=== PATIENT | female | born 1945 | race Caucasian/White ===

== ENCOUNTER 2020-01-29 09:37 | Inpatient (IN) | payer MEDICARE, OTHER, SELFPAY ==
[2020-01-29] VITALS (12 sets, daily range): BP systolic 134–170; BP diastolic 51–142; PULSE 70–107; RESP 15–20; TEMP 36.2–37.1; O2SAT 95–99; BMI 32.9; BMI 31.6
--- NOTE | 2020-01-29 10:03 | HMH.EDUTC ---
[facility] [place] Clinical Impression: Jaundice Disposition: Still a Patient Condition on Discharge: Good Referrals: Sarwat Galarza [Primary Care Provider] - Time of Disposition: 10:15 Medical Decision Making - Kaden Inquiry Pt receiving controlled substance: No Kaden was queried for this patient: No Vital Signs: 01/29/20 09:55 Pulse Rate [Radial] 107 H Respiratory Rate 18 Blood Pressure [Right Arm] 170/142 H Blood Pressure Mean [Right Arm] 151 Blood Pressure Source [Right Arm] Automatic Cuff Blood Pressure Position [Right Arm] Sitting 02 Sat by Pulse Oximetry 95 Oxygen Delivery Method Room Air Orders (Tests/Meds): ORDERS Category Date Time Status Covid-19 Nasal PCR ([facility]) Routine Lab 01/29/20 09:40 Ordered Medical Decision Narrative: Patient reports over all not feeling well and feeling worse than when she saw her PCP earlier in the week, states that she has a scope scheduled and needed a COVID test. Patient states that she is feeling weak, shaky , having pain on and off in upper abdomen and states just dont feel good at all, dont feel right and cant put her finger on whats wrong Patient appears jaundice with yellow tone noted to skin and eyes and recommended transfer to the ED for further work up and evaluation and patient agreed to transfer patient states scared because it was getting worse Called ED and spoke with Lisa RN and informed her of patient and appearance and patient transferred to ED for further treatment [facility] - General Stated complaint: covid test for surgery Time Seen by Provider: 01/29/20 10:03 Mode of Arrival: Ambulatory Source of Information: Patient Limitations: No Limitations Description of Symptoms (Recalled from Triage Doc. by RN): stung by a wasp 4 weeks ago and was put on Augmentin. Patient began to have reactions and was turning yellow. Told by doctor that she is allergic to Augmentin. Here today for a COVID swab for a scope on Thursday. Patient is extremely jaundice, shaky and not feeling well. HEENT Symptoms (Recalled from RN notes): No Resp Symptoms (Recalled from RN notes): No Skin Symptoms (Recalled from RN notes): Yes MS Symptoms (Recalled from RN notes): Yes Functional Status (Recalled from RN notes): wnl - History of Present Illness Provider Complaint: Patient states that several weeks ago she was stung by wasp and went to the ER states that she was started on Augmentin and she was taking it and started having issues and noticed that she was starting to have yellowish color to her skin and eyes States that she seen her PCP and they stopped it and placed her on another medication States that she has continued to get worse and her skin and eyes are continuing to look more yellow and her skin itches. States that at times she has discomfort in her upper abdomen but has history of Ulcers and IBS and thought that may just be from that States that she had lab work done on but they didnt give her the results and she has continued to get more yellow in her skin and eyes, feels shaky and over all dont feel well States that she came in today to get her COVID test done for surgery but just dont feel well and not feeling right - Related Data Allergies Allergy/AdvReac Type Severity Reaction Status Date / Time amoxicillin [From Augmentin] Allergy Verified 01/29/20 10:00 clavulanic acid Allergy Verified 01/29/20 10:00 [From Augmentin] - Worker's Comp Is this a Worker's Comp case?: No [facility] History - Hepatitis A Screen Drug use history?: No High risk sexual behaviors?: No History of sexually transmitted infection?: No Currently employed?: No Childcare worker?: No Do you have indoor plumbing?: Yes Do you have electricity?: Yes Attestation statement:: This patient has been screened for Hepatitis A risk factors. I have reviewed the patient's past medical history: Yes - Social History Alcohol Intake: never Occupational Status: other
--- NOTE | 2020-01-29 10:25 | HMH.EDGENADL ---
ED Disposition Clinical Impression: Jaundice, Obstructive jaundice Disposition: Admitted As Inpatient Condition on Discharge: Fair Additional Instructions: Patient will be admitted for ERCP given her obstructive jaundice. Case discussed with Dr. Figueroa who agreed with consultation and for the patient to be admitted to the hospitalist service. Patient is hemodynamically stable and is relatively pain-free at this time. Referrals: Sarwat Galarza [Primary Care Provider] - - Critical Care Critical Care Time: No Attestation: On 01/29/20, the high probability of a clinically significant, sudden or life threatening deterioration of the following system(s) required my full and direct attention, intervention and personal management. The time I documented below is in addition to time spent performing reported procedures but includes the following listed in this critical care notation. Medical Decision Making - Medical Records Medical records reviewed: Yes: I reviewed the patient's medical records. - Kaden Inquiry Pt receiving controlled substance: No Vital Signs: 01/29/20 09:55 01/29/20 10:16 01/29/20 10:30 Temperature 97.2 F L Temperature Source Temporal Artery Scan Pulse Rate [Radial] 107 H 100 H 88 Respiratory Rate 18 18 Blood Pressure [Right Arm] 170/142 H 170/77 H 168/56 H Blood Pressure Mean [Right Arm] 151 108 93 Blood Pressure Source [Right Arm] Automatic Cuff Automatic Cuff Automatic Cuff Blood Pressure Position [Right Arm] Sitting Sitting Sitting 02 Sat by Pulse Oximetry 95 95 95 Oxygen Delivery Method Room Air Room Air Room Air 01/29/20 10:57 01/29/20 12:55 Temperature Temperature Source Pulse Rate [Radial] 77 82 Respiratory Rate Blood Pressure [Right Arm] 147/64 H 140/55 L Blood Pressure Mean [Right Arm] 91 83 Blood Pressure Source [Right Arm] Automatic Cuff Automatic Cuff Blood Pressure Position [Right Arm] Sitting Sitting 02 Sat by Pulse Oximetry 96 97 Oxygen Delivery Method Room Air Room Air - Lab Data Lab Results 01/29/20 10:27: WBC 5.7, RBC 4.46, Hgb 14.6, Hct 42.5, MCV 95.4, MCH 32.8 H, MCHC 34.4, RDW 16.2, Plt Count 213, MPV 10.3, Neut % (Auto) 53.0, Lymph % (Auto) 31.7, [place] % (Auto) 7.4, Eos % (Auto) 6.2, Baso % (Auto) 1.7, Neut # (Auto) 3.0, Lymph # (Auto) 1.8, [place] # (Auto) 0.4, Eos # (Auto) 0.4, Baso # (Auto) 0.1 01/29/20 10:27: Sodium 138, Potassium 3.5, Chloride 102, Carbon Dioxide 24, Anion Gap 15.5 H, BUN 14, Creatinine 1.10 H, Estimated Creat Clear 61, Estimated GFR 49 L, Est GFR ( Amer) 59, Glucose 155 H, Calcium 9.8, Total Bilirubin 18.7 H*, AST 464 H*, ALT 461 H*, Alkaline Phosphatase 323 H, C-Reactive Protein 5.8 H, Total Protein 7.3, Albumin 4.0, Globulin 3.3 H, Albumin/Globulin Ratio 1.2 01/29/20 10:27: ESR 23 01/29/20 10:27: Lactate 1.4 01/29/20 10:27: NT-Pro-B Natriuret Pep 97.8, Lipase 148 01/29/20 10:27: Ammonia 13 01/29/20 10:27: Monoscreen Negative 01/29/20 10:27: SARS-CoV-2 IgG Ab (Rapid) Negative, SARS-CoV-2 IgM Ab (Rapid) Negative 01/29/20 10:36: Urine Color Lu, Urine Appearance Sl cloudy, Urine pH 6.0, Ur Specific [place] 1.015, Urine Protein 1+, Urine Glucose (UA) Negative, Urine Ketones Negative, Urine Blood Trace-l, Urine Nitrate Negative, Urine Bilirubin 3+ A, Urine Urobilinogen 1.0, Ur Leukocyte Esterase 1+ A, Urine RBC Occasional, Urine WBC 3-5, Ur Squamous Epith Cells 3-5, Amorphous Sediment 2+, Urine Bacteria None 01/29/20 10:36: VBG pH 7.44 H, VBG pCO2 33.8 L, VBG pO2 137.2 H, VBG HCO3 22.2 L, VBG Total CO2 23.3, VBG O2 Saturation 99.2 H, VBG Base Excess -2.0 Result diagrams: 01/29/20 10:27 01/29/20 10:27 Orders (Tests/Meds): ED MEDICATIONS Discontinued Medications Generic Name Dose Route Start Last Admin Trade Name Freq PRN Reason Stop Dose Admin Sodium Chloride 1,000 mls @ 999 mls/hr 01/29/20 11:00 01/29/20 11:01 Sod Chlor 0.9% 1000ml Bag IV 01/29/20 12:00 999 mls/hr .Q1H1M TRACI Administration Ioversol 75 ml
[2020-01-29 10:40] LABS: Microscopic, Urine URINE MICROSCOPIC (MICROSCOPIC)
[2020-01-29 10:42] LABS: Basophils # 0.1 K/mm3 (0-0.2); Basophils % 1.7 % (0.1-2.0); Eosinophils # 0.4 K/mm3 (0.0-0.4); Eosinophils % 6.2 % (0.1-12.0); Hematocrit 42.5 % (37.0-47.0); Hemoglobin 14.6 g/dL (12.2-16.2); Lymphocytes # 1.8 K/mm3 (0.7-4.5); Lymphocytes % 31.7 % (10-50); Mean Corpuscular HGB Conc 34.4 g/dL (31.8-35.4); Mean Corpuscular Hemoglobin 32.8 pg (27.0-31.2); Mean Corpuscular Volume 95.4 fl (81-99); Mean Platelet Volume 10.3 fl (7.4-10.4); Monocytes # 0.4 K/mm3 (0.1-1.0); Monocytes % 7.4 % (1.7-9.3); Platelet Count 213 K/mm3 (142-424); Red Blood Count 4.46 M/mm3 (4.20-5.40); Red Cell Distribution Width 16.2 % (11.5-17.5); White Blood Count 5.7 K/mm3 (4.8-10.8)
[2020-01-29 10:43] LABS: Appearance,Urine SL CLOUDY (Clear); Blood, Urine TRACE-L (Negative); Color,Urine AMBER (Yellow); Glucose,Urine (UA) Negative (Negative); Ketones,Urine Negative (Negative); Leukocyte Esterase,Urine 1+ (Negative); Nitrate,Urine Negative (Negative); Protein,Urine 1+ (Negative); Specific Gravity, Urine 1.015 (1.005-1.030)
[2020-01-29 10:48] LABS: Bilirubin,Urine 3+ (Negative)
[2020-01-29 10:49] LABS: Chloride 102 mmol/L (98-107); Potassium 3.5 mmoL/L (3.5-5.1); Sodium 138 mmol/L (136-145)
[2020-01-29 10:51] LABS: Alanine Aminotransferase 461 U/L (12-78); Aspartate Amino Transferase 464 U/L (14-36); Blood Urea Nitrogen 14 mg/dl (7-17); Creatinine Clearance Estimated 61 mL/min (50-200); Estimated Glomerular Filt Rate 49 ml/min (>60); GFR (African American) 59 ML/MIN (>60)
[2020-01-29 10:52] LABS: Albumin/Globulin Ratio 1.2 (1.1-1.8); Alkaline Phosphatase 323 U/L (38-126); Anion Gap 15.5 mEq/L (5-15); Calcium 9.8 mg/dl (8.4-10.2); Carbon Dioxide 24 mmol/L (22.0-30.0); Globulin 3.3 g/dL (1.3-3.2); Glucose 155 mg/dl (74-100); Total Protein,Serum 7.3 g/dl (6.3-8.2)
[2020-01-29 10:53] LABS: Ammonia 13 umol/L (9-30); Lactic Acid 1.4 mmol/L (0.7-2.1)
[2020-01-29 10:54] LABS: Bilirubin,Total 18.7 mg/dl (0.2-1.3); Lipase 148 U/L (23-300)
[2020-01-29 10:55] LABS: Amorphous Sediment,Urine 2+ /lpf; RBC,Urine Occasional #/hpf (0-3)
--- NOTE | 2020-01-29 10:55 | CT_ITS ---
PROCEDURE: CT ABDOMEN PELVIS W CON CLINICAL INDICATION: epigastric abd pain; jaundice; elevated bilirubin COMPARISON: No exams were available for comparison TECHNIQUE: IV Contrast: 75ML OPTIRAY 350 Oral Contrast none given Axial images obtained with sagittal and coronal reformats. All CT scans at the facility use one or more dose reduction, viz: automated exposure control, ma/kV adjustment per patient size (including targeted exams where dose is matched to indication, i.e. head), or iterative reconstruction technique. FINDINGS: Lower thorax: The lower lung mcintosh are clear and there is no pleural fluid. Cardiac size is normal. There is minimal coronary artery calcification. ABDOMEN: Liver: No masses or biliary dilatation. Gallbladder: The gallbladder is mildly hydropic with a calcified stone near the neck of the gallbladder. Mildly dilated at 7 mm. There is a possible tiny nodular density distal common bile duct just at or above the Ampulla of Vater. This could represent some biliary sludge and or partially calcified gallstone. Consider follow-up MRCP and/or ERCP for additional evaluation. Pancreas: No masses or peripancreatic fluid collections. Spleen: The spleen is normal in size containing multiple small calcified granulomata. Adrenals: unremarkable Kidneys/ureters: The kidneys are normal in size and show symmetrical function both appearing normal. ABDOMEN & PELVIS: Stomach bowel: Nondistended. No obvious mass or thickening. The duodenal sweep and small bowel appear normal. There is mild to moderate scattered stool and gas seen throughout the colon. There is minimal diffuse diverticulosis of the sigmoid colon but there is no diverticulitis. Peritoneum: No abnormal fluid collections. No obvious inflammatory changes. No free air. Lymph nodes: No enlarged lymph nodes apparent. Vasculature: No evidence of abdom there is mild degenerate disc disease L5-S1. Inal aortic aneurysm. No retroperitoneal hemorrhage evident. Bones: No acute fracture PELVIS: Reproductive: The uterus is normal size and midline. Bladder: Urinary bladder is moderately distended with urine and appears normal. There is no free fluid in the pelvis. Appendix: Not definitely identified but there are no findings to suggest appendicitis. IMPRESSION: Grossly normal appearing liver, cholelithiasis with tiny partially calcified stone versus biliary sludge distal common bile duct and depending on the patient's subsequent clinical symptoms consider follow-up ERCP or ERCP for additional evaluation. Dictated by: Dr. Mejia Callahan MD 01/29/2020 12:46 Dr. Mejia Callhaan MD in [place] 01/29/2020 12:46
[2020-01-29 10:57] LABS: C-Reactive Protein 5.8 mg/L (0-4)
--- NOTE | 2020-01-29 10:58 | PC.NURSE ---
Lab at bedside
--- NOTE | 2020-01-29 10:59 | PC.NURSE ---
Calling [facility] for pt records.
[2020-01-29 11:04] LABS: NT Pro Brain Natriuretic Pep. 97.8 pg/mL (0-125)
--- NOTE | 2020-01-29 11:07 | PC.NURSE ---
Labs received from [place] at this time.
[2020-01-29 11:09] LABS: Erythrocyte Sedimentation Rate 23 mm/hr (0-30)
[2020-01-29 11:15] LABS: Monoscreen (Rapid) Negative (Negative)
[2020-01-29 11:18] LABS: VBG HCO3 22.2 mmol/L (23-30); VBG Oxygen Saturation 99.2 % (50-70); VBG PCO2 33.8 mmol/L (35-51); VBG PH 7.44 mmol/L (7.31-7.41); VBG PO2 137.2 mmol/L (28-40); VBG Total CO2 23.3 mmol/L (23-27)
[2020-01-29 11:26] LABS: Coronavirus 19 IgG Antibody Negative (Negative); Coronavirus 19 IgM Antibody Negative (Negative)
--- NOTE | 2020-01-29 12:04 | PC.NURSE ---
Pt to rad.
--- NOTE | 2020-01-29 13:21 | PC.NURSE ---
speaking to dr Figueroa
--- NOTE | 2020-01-29 13:26 | PC.NURSE ---
speaking to Dr Caldwell referring admission
--- NOTE | 2020-01-29 13:29 | PC.NURSE ---
Notified house of admission
--- NOTE | 2020-01-29 15:46 | PC.NURSE ---
Pt arrived to the floor at 1530 via wc with staff
--- NOTE | 2020-01-29 21:30 | HMH.HP ---
*Admission Date: 01/29/20 *Chief complaint: Not feeling well. *History of present illness: This 74-year-old white female presented this evening to the urgent treatment center initially. She complained of not feeling well for a while. She had been scheduled for a gastroenterology appointment this coming week on Thursday. She was supposed to be tested for COVID prior to that test. When she was seen in urgent treatment it was felt that she needed further evaluation due to obvious jaundice. She was then transferred to the emergency room for further evaluation. In the emergency room she was found to have elevated liver enzymes and bilirubin. CT was performed and showed obstruction of the biliary tract. The emergency room physician contacted Dr. Figueroa. The patient is admitted for further evaluation with likely ERCP in the morning. The patient reports no previous episodes of jaundice but does have a history of irritable bowel syndrome and cramping after she eats certain foods. She states that she had a gallbladder test 2 to 3 years ago. She states that she had an MRI recently for GI symptoms. In addition to the above the patient states that she was stung by a wasp 4 weeks ago and received treatment with Augmentin and subsequently with ampicillin. She has been fearful that her current symptoms are related to allergic reaction to those medications. She has not had any typical allergic reactions, however, to these medications. [facility] History Medical History: Reports:: Gastroesophageal Reflux Disease(GERD) (PUD), Hyperlipidemia, Hypertension Denies:: Cancer, Diabetes Mellitus Type 1, Diabetes Mellitus Type 2, Internal Pacemaker, MRSA *Have you ever received a pneumonia vaccine?: Yes *Have you received a flu vaccine this season?: Yes (Also has received hepatitis A immunization and shingles immunization) Other Medical History: Reports: Cataracts Laterality Cases: Right: Arthroscopy Shoulder (States that she has had multiple surgeries on the right shoulder) Other Surgeries: Yes: No Previous Surgery. No: Pacemaker Amputation: No Fractures: No - *Social History Last grade of school completed: 11th or 12th Smoking Status: Never smoker Alcohol Intake: never *Occupational Status:: retired (Worked at [employer] for 30 years) Housing: apartment Household Members: spouse *Travel in the last 8 weeks: None Family Hx:: Cancer Comment: . 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 She has a son and a daughter. She has 4 grandchildren and 2 great-grandchildren. 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[place]) - *Genitourinary Denies blood in urine (Urine has been a bit darker in color) - *Musculoskeletal Denies joint pain (Except right shoulder pain), Denies body aches - *Neurologic Reports weakness, Denies seizure-like activity, Denies fainting - Hematologic/Lymphatic Denies easy bruising - Allergic/Immunologic Reports GI upset with certain foods, Reports other (Some itching of the skin recently) Meds Home Medications Medication Instructions Recorded Confirmed Type Metoprolol Succinate [Metoprolol 25 mg PO DAILY 01/29/20 01/29/20 History Succinate 25mg Tablet*] Montelukast Sodium [Singulair 10mg 10 mg PO PM 01/29/20 01/29/20 History tablet] Omeprazole [Omeprazole 40mg 40 mg PO DAILY 01/29/20 01/29/20 History Capsule] Pravastatin Sodium [Pravachol 20mg 20 mg PO HS 01/29/20 01/29/20 History Tablet] Allergies Allergy/AdvReac Type Severity Reaction Status Date / Time amoxicillin [From Augmentin] Allergy Verified 01/29/20 10:00 clavulanic acid Allergy Verified 01/29/20 10:00 [From Augmentin] Exam Vital signs and Lab
[2020-01-30] VITALS (15 sets, daily range): BP systolic 114–167; BP diastolic 40–82; PULSE 61–86; RESP 16–20; TEMP 36.1–37.1; O2SAT 95–100; BMI 31.4
--- NOTE | 2020-01-30 03:48 | PC.NURSE ---
Pt has rested well this shift. Pt is A&Ox4. Lung sounds clear t/o. Active bowel sounds in all 4 quads. Abdomen is soft and non-tender. Pt's skin and sclera continue to be jaundiced but have showed no increase in yellowing. Pt was educated on NPO after midnight status and has verbalized understanding. PIV remains patent and is infusing 0.45% NS @ 75 ml/hr. NO other acute changes or complaints at this time. Will continue to monitor.
[2020-01-30 05:43] LABS: Basophils # 0.1 K/mm3 (0-0.2); Basophils % 1.6 % (0.1-2.0); Eosinophils # 0.5 K/mm3 (0.0-0.4); Hematocrit 38.9 % (37.0-47.0); Hemoglobin 13.2 g/dL (12.2-16.2); Lymphocytes # 1.8 K/mm3 (0.7-4.5); Lymphocytes % 32.3 % (10-50); Mean Corpuscular HGB Conc 33.9 g/dL (31.8-35.4); Mean Corpuscular Hemoglobin 33.8 pg (27.0-31.2); Mean Corpuscular Volume 99.9 fl (81-99); Mean Platelet Volume 9.6 fl (7.4-10.4); Monocytes # 0.5 K/mm3 (0.1-1.0); Monocytes % 8.5 % (1.7-9.3); Neutrophils # 2.6 K/mm3 (1.8-7.8); Neutrophils % 47.4 % (37.0-80.0); Platelet Count 181 K/mm3 (142-424); Red Cell Distribution Width 16.2 % (11.5-17.5); White Blood Count 5.4 K/mm3 (4.8-10.8)
[2020-01-30 06:06] LABS: Albumin Level 3.6 g/dl (3.5-5.0); Albumin/Globulin Ratio 1.2 (1.1-1.8); Alkaline Phosphatase 332 U/L (38-126); Anion Gap 12.4 mEq/L (5-15); Blood Urea Nitrogen 13 mg/dl (7-17); Calcium 9.4 mg/dl (8.4-10.2); Carbon Dioxide 25 mmol/L (22.0-30.0); Chloride 105 mmol/L (98-107); Creatinine Clearance Estimated 58 mL/min (50-200); Estimated Glomerular Filt Rate 49 ml/min (>60); GFR (African American) 59 ML/MIN (>60); Globulin 3.1 g/dL (1.3-3.2); Potassium 4.4 mmoL/L (3.5-5.1); Sodium 138 mmol/L (136-145); Total Protein,Serum 6.7 g/dl (6.3-8.2)
[2020-01-30 06:08] LABS: Alanine Aminotransferase 400 U/L (12-78); Aspartate Amino Transferase 400 U/L (14-36); Glucose 118 mg/dl (74-100)
--- NOTE | 2020-01-30 06:30 | PC.NURSE ---
MD Caldwell paged for critical labs. Bilirubin- 16.0 AST- 400 ALT- 400 No new orders.
--- NOTE | 2020-01-30 07:32 | P.CONPHA_ITS ---
[facility] Pharmacy VTE Monitoring - Patient Demographics Admission date: 01/29/20 Report Date: 01/30/20 Time: 07:33 Allergies/Adverse Reactions: Patient Allergies amoxicillin [From Augmentin] Allergy (Verified 01/29/20 10:00) clavulanic acid [From Augmentin] Allergy (Verified 01/29/20 10:00) Height: 1.6 m Weight: 80.513 kg Patient Problems: Current Active Problems Jaundice (Acute) Obstructive jaundice (Acute) - VTE Risk Labs: VTE Related Lab Results Hgb 13.2 g/dL (12.2-16.2) 01/30/20 05:26 Hct 38.9 % (37.0-47.0) 01/30/20 05:26 Plt Count 181 K/mm3 (142-424) 01/30/20 05:26 BUN 13 mg/dl (7-17) 01/30/20 05:26 Creatinine 1.10 mg/dl (0.52-1.04) H 01/30/20 05:26 Estimated Creat Clear 58 mL/min (50-200) 01/30/20 05:26 Was VTE Risk Assessment Performed: Yes VTE Score: 2 VTE Risk Level: Very Low Risk - Prophylaxis VTE Prophylaxis Ordered?: Yes Types of VTE Prophylaxis: TEDS Knee High Location of Applied Device: Bilateral Lower Extremeties
--- NOTE | 2020-01-30 07:40 | FL_ITS ---
PROCEDURE: FL ERCP CLINICAL INDICATION: elevated liver enzymes COMPARISON: CT CT ABDOMEN PELVIS W CON from 01/29/2020 FINDINGS: Fluoroscopy time: 5 minutes and 12 seconds Pancreatogram initially performed with incomplete opacification of the pancreatic duct with opacification limited to the pancreatic head raising the question of a pancreatic divisum... A stent was placed in the pancreatic duct. Single image submitted from the biliary ductal injection showing abrupt termination of the distal common bile duct with possible minimal amount of sludge or tiny stones distally. Please correlate with fluoroscopic findings. IMPRESSION: 1. Possible pancreatic divisum 2. Abrupt termination of the distal common bile duct possibly due to spasm. There may be a minimal amount of sludge or tiny stone distally. Please correlate with fluoroscopic findings as obstruction of the distal duct is not excluded based on this 1 image. Dictated by: Som Vargas MD 01/31/2020 15:09 Som Vargas MD in [place] 01/31/2020 15:09
--- NOTE | 2020-01-30 07:49 | HMH.PHAINT ---
MEDICATION RECONCILIATION COMPLETED ON PATIENT USING EXTERNAL FILL HISTORY FROM PHARMACY. -KRISTINA PAULINO, SANTID
--- NOTE | 2020-01-30 08:15 | HMH.ACPN2 ---
Internal Medicine - PN: Subj *Date: 01/30/20 *Time: 08:15 Interval history: Patient states she slept through the night. She denies any type of pain. She is breathing without difficulty. She is awaiting her procedure, ERCP, this morning per Dr. Figueroa and has been n.p.o. She did eat dinner without difficulty last night. She denies nausea, vomiting, diarrhea. She did have 2 normal stools this morning. She ambulates without difficulty. IV fluids remained at 75/h. Blood chemistries this morning show normal electrolytes. BUN is 13 and creatinine is 1.10. Total bilirubin remains elevated at 16. AST is 400 with an ALT of 400 and alkaline phosphatase of 332. Exam Vital signs and Labs for Last 24 Hours: Temp Pulse Resp BP Pulse Ox 98.5 F 81 20 138/56 L 97 01/30/20 04:00 01/30/20 04:00 01/30/20 04:00 01/30/20 04:00 01/30/20 04:00 Laboratory Results - last 24 hr 01/29/20 10:27: WBC 5.7, RBC 4.46, Hgb 14.6, Hct 42.5, MCV 95.4, MCH 32.8 H, MCHC 34.4, RDW 16.2, Plt Count 213, MPV 10.3, Neut % (Auto) 53.0, Lymph % (Auto) 31.7, [place] % (Auto) 7.4, Eos % (Auto) 6.2, Baso % (Auto) 1.7, Neut # (Auto) 3.0, Lymph # (Auto) 1.8, [place] # (Auto) 0.4, Eos # (Auto) 0.4, Baso # (Auto) 0.1 01/29/20 10:27: Sodium 138, Potassium 3.5, Chloride 102, Carbon Dioxide 24, Anion Gap 15.5 H, BUN 14, Creatinine 1.10 H, Estimated Creat Clear 61, Estimated GFR 49 L, Est GFR ( Amer) 59, Glucose 155 H, Calcium 9.8, Total Bilirubin 18.7 H*, AST 464 H*, ALT 461 H*, Alkaline Phosphatase 323 H, C-Reactive Protein 5.8 H, Total Protein 7.3, Albumin 4.0, Globulin 3.3 H, Albumin/Globulin Ratio 1.2 01/29/20 10:27: ESR 23 01/29/20 10:27: Lactate 1.4 01/29/20 10:27: NT-Pro-B Natriuret Pep 97.8, Lipase 148 01/29/20 10:27: Ammonia 13 01/29/20 10:27: Monoscreen Negative 01/29/20 10:27: SARS-CoV-2 IgG Ab (Rapid) Negative, SARS-CoV-2 IgM Ab (Rapid) Negative 01/29/20 10:36: Urine Color Lu, Urine Appearance Sl cloudy, Urine pH 6.0, Ur Specific [place] 1.015, Urine Protein 1+, Urine Glucose (UA) Negative, Urine Ketones Negative, Urine Blood Trace-l, Urine Nitrate Negative, Urine Bilirubin 3+ A, Urine Urobilinogen 1.0, Ur Leukocyte Esterase 1+ A, Urine RBC Occasional, Urine WBC 3-5, Ur Squamous Epith Cells 3-5, Amorphous Sediment 2+, Urine Bacteria None 01/29/20 10:36: VBG pH 7.44 H, VBG pCO2 33.8 L, VBG pO2 137.2 H, VBG HCO3 22.2 L, VBG Total CO2 23.3, VBG O2 Saturation 99.2 H, VBG Base Excess -2.0 01/30/20 05:26: WBC 5.4, RBC 3.90 L, Hgb 13.2, Hct 38.9, MCV 99.9 H, MCH 33.8 H, MCHC 33.9, RDW 16.2, Plt Count 181, MPV 9.6, Neut % (Auto) 47.4, Lymph % (Auto) 32.3, [place] % (Auto) 8.5, Eos % (Auto) 10.0, Baso % (Auto) 1.6, Neut # (Auto) 2.6, Lymph # (Auto) 1.8, [place] # (Auto) 0.5, Eos # (Auto) 0.5 H, Baso # (Auto) 0.1 01/30/20 05:26: Sodium 138, Potassium 4.4 D, Chloride 105, Carbon Dioxide 25, Anion Gap 12.4, BUN 13, Creatinine 1.10 H, Estimated Creat Clear 58, Estimated GFR 49 L, Est GFR ( Amer) 59, Glucose 118 H D, Calcium 9.4, Total Bilirubin 16.0 H*, AST 400 H*, ALT 400 H*, Alkaline Phosphatase 332 H, Total Protein 6.7, Albumin 3.6, Globulin 3.1, Albumin/Globulin Ratio 1.2 I & O for Last 24 hours: Intake & Output 01/27/20 01/28/20 01/29/20 01/30/20 11:59 11:59 11:59 11:59 Intake Total 686 / 686 Balance 686 / 686 Weight 186 lb 177 lb 8 oz Microbiology Reports for the Last 24 Hours: Microbiology 01/29/20 09:15 Nasopharyngeal Coronavirus COVID-19 PCR - Final - Constitutional no acute distress - *Routine Respiratory Exam Present: CTA bilaterally (Anteriorly and posteriorly) - *Routine Cardiovascular Exam Present: RRR - *Routine Abdominal Exam Present: soft, normoactive bowel sounds. Absent: tenderness, distended - *Routine Extremities Exam Absent: edema, calf tenderness - *Routine Skin Exam Present: jaundice - *Routine Neurological Exam Present: alert, oriented X3 Assessment and Plan (1) Jaundice Status: Acute Shyla
--- NOTE | 2020-01-30 09:09 | PC.NURSE ---
SPOKE TO KIAN (PRE OP) ABOUT CONSULT.
--- NOTE | 2020-01-30 15:05 | P.PN_ITS ---
[facility] Anesthesia Checklist - Structural Data Admitted From: Inpatient Planned Operative Procedure/s: ercp Consent for Planned Operative Procedure(s) Verified: Yes - Airway Assessment C-Spine Mobility Assessed: Yes TMJ Mobility Assessed: Yes Dentition: Dentures-good fit - Neurological Assessment Level of Consciousness: Awake, Alert, Appropriate - Anesthesia Plan Anesthesia Risk discussed: Yes Anesthesia Plan: Verified ASA Class: II Anesthesia Type: MAC [facility] History I have reviewed the patient's past medical history: Yes Medical History: Reports:: Gastroesophageal Reflux Disease(GERD) (PUD), Hyperlipidemia, Hypertension Denies:: Cancer, Diabetes Mellitus Type 1, Diabetes Mellitus Type 2, Internal Pacemaker, MRSA *Have you ever received a pneumonia vaccine?: Yes *Have you received a flu vaccine this season?: Yes (Also has received hepatitis A immunization and shingles immunization) Other Medical History: Reports: Cataracts Anesthesia experience/problems:: none Laterality Cases: Right: Arthroscopy Shoulder (States that she has had multiple surgeries on the right shoulder) Other Surgeries: Yes: No Previous Surgery. No: Pacemaker Amputation: No Fractures: No - *Social History Last grade of school completed: 11th or 12th Smoking Status: Never smoker Alcohol Intake: never Substance Use Type: denies use *Occupational Status:: retired (Worked at [employer] for 30 years) Housing: apartment Household Members: spouse *Travel in the last 8 weeks: None Family Hx:: Cancer
--- NOTE | 2020-01-30 18:18 | PC.NURSE ---
A&OX4. PT HAS TOLERATED ROOM AIR WELL THROUGHOUT SHIFT. RESPIRATIONS REGULAR AND UNLABORED. LUNG SOUNDS BILATERALLY CLEAR. NO COUGH NOTED. HAND TITLE CURATIVE SPECIALIST EQUAL. +2 PULSES NOTED THROUGHOUT. ACTIVE BOWEL SOUNDS HEARD IN ALL 4 QUADRANTS. SOFT AND NONTENDER ABDOMEN. NO BM REPORTED. PT VOIDS PER RESTROOM INDEPENDENTLY. NO NAUSEA OR PAIN REPORTED. JAUNDICE IS NOTED IN BILATERAL EYES AND SKIN. PT RECEIVED ERCP TODAY AND TOLERATED WELL. DR CASAREZ ORDERED ICE CHIPS AND WATER TO BE GIVEN ONLY. PT IS TOLERATING WELL. PT IS CURRENTLY ON POST OP VITALS. VSS. PT IS CURRENTLY IN BED RESTING. AT BEDSIDE. CALL LIGHT WITHIN REACH. BED IN LOWEST POSITION. WILL CONTINUE TO MONITOR.
[2020-01-31] VITALS: BP 118/48; PULSE 72; RESP 18; TEMP 36.6; O2SAT 99
--- NOTE | 2020-01-31 03:26 | PC.NURSE ---
pt A&OX4 lungs CTA pt denies SOA. pt c/o of back pain medicated per JUN. pt has slept at intervals this shift
[2020-01-31 04:00] VITALS: BP 128/59; PULSE 80; RESP 16; TEMP 37.1; O2SAT 97
[2020-01-31 05:28] VITALS: BMI 31.9
[2020-01-31 06:03] LABS: Hep A Ab, IgM Negative (Negative); Hepatitis B Core Antibody IgM Negative (Negative); Hepatitis B Surface Antigen Negative (Negative)
[2020-01-31 06:08] LABS: Eosinophils # 0.4 K/mm3 (0.0-0.4)
[2020-01-31 06:09] LABS: Chloride 104 mmol/L (98-107); Potassium 4.1 mmoL/L (3.5-5.1); Sodium 135 mmol/L (136-145)
[2020-01-31 06:12] LABS: Alanine Aminotransferase 301 U/L (12-78); Albumin/Globulin Ratio 1.2 (1.1-1.8); Alkaline Phosphatase 246 U/L (38-126); Anion Gap 12.1 mEq/L (5-15); Aspartate Amino Transferase 281 U/L (14-36); Bilirubin,Total 16.6 mg/dl (0.2-1.3); Blood Urea Nitrogen 18 mg/dl (7-17); Carbon Dioxide 23 mmol/L (22.0-30.0); Creatinine Clearance Estimated 59 mL/min (50-200); Estimated Glomerular Filt Rate 49 ml/min (>60); GFR (African American) 59 ML/MIN (>60); Globulin 2.6 g/dL (1.3-3.2); Glucose 89 mg/dl (74-100); Total Protein,Serum 5.6 g/dl (6.3-8.2)
[2020-01-31 07:35] VITALS: O2SAT 98
[2020-01-31 07:53] VITALS: BP 130/65; PULSE 72; RESP 19; TEMP 36.7; O2SAT 99
--- NOTE | 2020-01-31 08:31 | P.PN_ITS ---
Internal Medicine - PN: Subj *Date: 01/31/20 *Time: 08:31 Interval history: Patient states she did sleep some last night. She remains n.p.o. and is hungry and would like to have some food. is at bedside and explained the procedure yesterday. Note not available. Apparently she had a stent placed for the obstruction by gallstone. She is to see Dr. Figueroa in 2 weeks. She states her biggest issue is her back. She feels that is the bed that makes it hurt. Bowels have moved. She is voiding QS. She is anxious to go home. Will order her some food. Exam Vital signs and Labs for Last 24 Hours: Temp Pulse Resp BP Pulse Ox 98.0 F 72 19 130/65 99 01/31/20 07:53 01/31/20 07:53 01/31/20 07:53 01/31/20 07:53 01/31/20 07:53 Laboratory Results - last 24 hr 01/31/20 05:44: WBC 5.6, RBC 3.35 L, Hgb 11.0 L, Hct 35.3 L, MCV 105.6 H, MCH 32.8 H, MCHC 31.0 L, RDW 24.4 H D, Plt Count 136 L, MPV 28.4 H, Neut % (Auto) 54.1, Lymph % (Auto) 31.5, [place] % (Auto) 7.0, Eos % (Auto) 7.4, Baso % (Auto) 7.8 H, Neut # (Auto) 3.0, Lymph # (Auto) 1.8, [place] # (Auto) 0.4, Eos # (Auto) 0.4, Baso # (Auto) 0.4 H 01/31/20 05:44: Sodium 135 L, Potassium 4.1, Chloride 104, Carbon Dioxide 23, Anion Gap 12.1, BUN 18 H D, Creatinine 1.10 H, Estimated Creat Clear 59, Estim ated GFR 49 L, Est GFR ( Amer) 59, Glucose 89, Calcium 9.0, Total Bilirubin 16.6 H*, AST 281 H D, ALT 301 H*, Alkaline Phosphatase 246 H, Total Protein 5.6 L, Albumin 3.0 L D, Globulin 2.6, Albumin/Globulin Ratio 1.2 I & O for Last 24 hours: Intake & Output 10/03/20 10/04/20 10/05/20 10/06/20 11:59 11:59 11:59 11:59 Intake Total 686 / 686 1384 / 1384 Balance 686 / 686 1384 / 1384 Weight 186 lb 177 lb 8 oz 180 lb 5 oz Microbiology Reports for the Last 24 Hours: Microbiology 01/29/20 10:36 Urine,Clean Catch Urine Culture - Final Escherichia coli - Constitutional no acute distress - *Routine Respiratory Exam Present: CTA bilaterally (Anteriorly and posteriorly) - *Routine Cardiovascular Exam Present: RRR - *Routine Abdominal Exam Present: soft, normoactive bowel sounds, distended (Slightly). Absent: tenderness - *Routine Extremities Exam Absent: edema, calf tenderness - *Routine Neurological Exam Present: alert, oriented X3 Assessment and Plan (1) Jaundice Status: Acute Category: Medical Code(s): R17 - Unspecified jaundice (2) Obstructive jaundice Status: Acute Category: Medical Code(s): K83.1 - Obstruction of bile duct (3) History of biliary duct stent placement Status: Acute Category: Surgical Code(s): Z98.890 - Other specified postprocedural states - Assessment and plan all Dx Assessment and Plan for all problems:: We will order a low-fat diet. Probably home today.
[2020-01-31 09:08] LABS: Hemoglobin 10.7 g/dL (12.2-16.2); Red Blood Count 2.65 M/mm3 (4.20-5.40); White Blood Count 5.9 K/mm3 (4.8-10.8)
[2020-01-31 09:09] LABS: Hematocrit 26.4 % (37.0-47.0); Mean Corpuscular HGB Conc 40.7 g/dL (31.8-35.4); Mean Corpuscular Hemoglobin 40.6 pg (27.0-31.2); Mean Corpuscular Volume 99.7 fl (81-99); Red Cell Distribution Width 16.2 % (11.5-17.5)
[2020-01-31 09:10] LABS: Lymphocytes % 37.2 % (10-50); Monocytes % 5.7 % (1.7-9.3); Neutrophils % 49.6 % (37.0-80.0); Platelet Count 176 K/mm3 (142-424)
[2020-01-31 09:11] LABS: Basophils % 0.9 % (0.1-2.0); Eosinophils % 6.6 % (0.1-12.0); Lymphocytes # 2.2 K/mm3 (0.7-4.5); Monocytes # 0.3 K/mm3 (0.1-1.0); Neutrophils # 2.9 K/mm3 (1.8-7.8)
[2020-01-31 09:12] LABS: Basophils # 0.1 K/mm3 (0-0.2)
--- NOTE | 2020-01-31 09:16 | HMH.PROC ---
[facility] Procedure Note Procedure Note:: ERCP procedure Report: Endoscopic retrograde cholangiopancreatography with pancreatic/biliary sphincterotomy, pancreatic stent placement and balloon sweep extraction Endoscopist: Kobe Figueroa II, MD Referring Physician: Sarwat Galarza MD Date of Procedure: January 30, 2020 Equipment: Olympus 180 side viewing endoscope duodenoscope Sedation: MAC sedation Indication: Mrs. Reddy is a 74-year-old female who presents with jaundice and biliary obstruction. The patient did have a bee sting 4 weeks ago and was treated with Augmentin, Lipitor and antihistamines (Dr. Sarwat Galarza). Since then, she is gradually developed pruritus/itching and jaundice. She has noted darkened urine in the last week and some acholic stools. She also has had epigastric crampy discomfort. She did have an ultrasound by Dr. Galarza which I believe was unremarkable. She came to the emergency department and her liver chemistries were elevated with ALT 400, alkaline phosphatase 332 and total bilirubin 16.0. Her hemoglobin 13.2 and hematocrit 38.9 were normal. She had a normal white blood cell count of 5.4. She reports a knot in the epigastrium. Her CT scan of the abdomen did show a dilated biliary system with a probable distal common bile duct stone or sludge. 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 She reports no fever or chills. She has had no weight loss. She was admitted from the emergency department yesterday. Procedure: Prior to the procedure, a history and physical exam was performed, and patient's medications and allergies were reviewed. The risks, benefits and alternatives of the sedation and procedure were discussed with the patient. All questions were answered and informed consent was obtained. The patient was brought to the fluoroscopic radiology room. Patient identification and proposed procedure were verified by the physician and the nurse. The patient was placed in a swimmer's position between left lateral decubitus and prone position and the scope was passed under direct vision. Throughout the procedure, the patient's blood pressure, pulse, and oxygen saturations were monitored continuously. The ERCP was accomplished without difficulty. The patient tolerated the procedure well. Findings: The side-viewing duodenal scope was passed directly into the upper esophagus and advanced to the second portion of the duodenum. The ampulla was visualized. Initially, the pancreatic duct was selectively cannulated and the pancreatogram did show a normal pancreatic duct in the head, body and tail of the gland. With cannulation, the bile duct was more difficult so because of selective pancreatic cannulation, a 5 Turkish, 7 cm pigtail stent was placed into the pancreas. After this stent was placed, a pancreatic/biliary needle-knife sphincterotomy was performed. Next, the sphincterotome was used to cannulate the biliary system. The cholangiogram did show a 7 to 8 mm common bile duct with a distal filling defect and sludge. Extension of the biliary sphincterotomy was performed. Next, a sweeping balloon (9 to 12 mm) was placed at the hilum and insufflated to 9 mm and swept through the biliary system twice with the passage of some sludge and mostly reyes bile. A repeat cholangiogram did show filling of the cystic duct and gallbladder as well as no further filling defects identified. The procedure was then ended. Impression: 1. Choledocholithiasis (small stones/sludge in distal CBD) status post biliary sphincterotomy and balloon extraction Plan: I would recommend that the patient have abdominal films in 7 to 10 days. If the pancreatic stent has not passed, I would then recommend an EGD with pancreatic stent removal. I will repeat liver chemistries again in 7 to 10 days as well. Given the fact that the biliary system was not markedly dilated, I do wonder if some of the distal common duct stones were incidental and this is intrahepatic cholest
[2020-01-31 10:00] LABS: Hepatitis C Antibody <0.1 s/co ratio (0.0-0.9)
--- NOTE | 2020-01-31 10:00 | HMH.PHAINT ---
DISCHARGE COUNSELING COMPLETED ON PATIENT. NO NEW PRESCRIPTIONS. PATIENT IS TO STOP PRAVASTATIN AND SINGULAIR. CONTINUING ALL OTHER HOME MEDICATIONS. PATIENT VERBALIZED UNDERSTANDING AND HAD NO QUESTIONS AT THIS TIME. -KRISTINA PAULINO, SANTID
--- NOTE | 2020-02-02 14:56 | HMH.DCSUM ---
General - General Admission date:: 01/29/20 Discharge date: 01/31/20 HPI HPI: This 74-year-old white female presented to the urgent treatment center initially. She complained of not feeling well for a while. She had been scheduled for a gastroenterology appointment the coming week. She was supposed to be tested for COVID prior to that test. When she was seen in urgent treatment it was felt that she needed further evaluation due to obvious jaundice. She was then transferred to the emergency room for further evaluation. In the emergency room she was found to have elevated liver enzymes and bilirubin. CT was performed and showed obstruction of the biliary tract. The emergency room physician contacted Dr. Figueroa. The patient was admitted for further evaluation with likely ERCP the following morning. The patient reported no previous episodes of jaundice but did have a history of irritable bowel syndrome and cramping after eating certain foods. She stated that she had a gallbladder test 2 to 3 years ago. She stated that she had a MRI recently for GI symptoms. In addition to the above the patient stated that she was stung by a wasp 4 weeks ago and received treatment with Augmentin and subsequently with ampicillin. She had been fearful that her current symptoms were related to allergic reaction to those medications. She had not experienced any typical allergic reactions, however, to these medications. Hospital Course Hospital Course: Patient was given an IV fluid bolus in the emergency room. She continually denied nausea, vomiting and abdominal pain. She was seen by Dr. Figueroa who who performed an endoscopic retrograde cholangio-pancreatography with pancreatic/biliary sphincterotomy, pancreatic stent placement and balloon sweep extraction on 01/30/[address]. [address] Figueroa: Choledocholithiasis ( small stones/sludge in distal common bile duct) and recommended that the patient have additional abdominal films in 7 to 10 days as well as liver chemistries. Patient had remained n.p.o. and was hungry. She had liquids which she tolerated well. She did experience some back pain which she felt was due to the bed. Her bowels were moving. She was anxious to go home. Her Jaundice had improved and LVT were improving. On 01/31/2020 patient was discharged home in stable and satisfactory condition. She was instructed on limited activity and a low-fat low-cholesterol diet. She was to follow-up with her primary care provider, Sarwat Galarza, on 02/08/2020. Medications as per medication reconciliation sheet. Objective Vital signs: Temp Pulse Resp BP Pulse Ox 98.0 F 72 19 130/65 99 01/31/20 07:53 01/31/20 07:53 01/31/20 07:53 01/31/20 07:53 01/31/20 07:53 Narrative: Exam Vital signs and Labs for Last 24 Hours: Temp Pulse Resp BP Pulse Ox 98.0 F 72 19 130/65 99 01/31/20 07:53 01/31/20 07:53 01/31/20 07:53 01/31/20 07:53 01/31/20 07:53 Laboratory Results - last 24 hr 01/31/20 05:44: WBC 5.6, RBC 3.35 L, Hgb 11.0 L, Hct 35.3 L, MCV 105.6 H, MCH 32.8 H, MCHC 31.0 L, RDW 24.4 H D, Plt Count 136 L, MPV 28.4 H, Neut % (Auto) 54.1, Lymph % (Auto) 31.5, [place] % (Auto) 7.0, Eos % (Auto) 7.4, Baso % (Auto) 7.8 H, Neut # (Auto) 3.0, Lymph # (Auto) 1.8, [place] # (Auto) 0.4, Eos # (Auto) 0.4, Baso # (Auto) 0.4 H 01/31/20 05:44: Sodium 135 L, Potassium 4.1, Chloride 104, Carbon Dioxide 23, Anion Gap 12.1, BUN 18 H D, Creatinine 1.10 H, Estimated Creat Clear 59, Estimated GFR 49 L, Est GFR ( Amer) 59, Glucose 89, Calcium 9.0, Total Bilirubin 16.6 H*, AST 281 H D, ALT 301 H*, Alkaline Phosphatase 246 H, Total Protein 5.6 L, Albumin 3.0 L D, Globulin 2.6, Albumin/Globulin Ratio 1.2 I & O for Last 24 hours: Intake & Output 01/28/20 01/29/20 01/30/20 01/31/20 11:59 11:59 11:59 11:59 Intake Total 686 / 686 1384 / 1384 Balance 686 / 686 1384 / 1384 Weight 186 lb 177 lb 8 oz 180 lb 5 oz
== END 2020-01-31 10:15 | disposition home or self-care (01) | DRG 446 ==
LOC: UTC 10:00 → ER 10:04 → 2ND 15:06
PROVIDERS: Internal Medicine Gastroenterology; Nurse Practitioner Family; Admitting Provider Family Medicine; Emergency Provider Emergency Medicine; PCP Family Medicine; Visit Provider Family Medicine
DX: K83.1 Obstruction of bile duct (principal); I10 Essential (primary) hypertension; E78.5 Hyperlipidemia, unspecified; Z79.899 Other long term (current) drug therapy; Z88.0 Allergy status to penicillin; Z88.1 Allergy status to other antibiotic agents
CPT/HCPCS: 43264; 43274; 36415; 74177; 74330; 76000; 80053; 80074; 81001; 82140; 82803; 83605; 83690; 83880; 85025; 85651; 86140; 86318; 86328; 87040; 87086; 87088; 87186; 96365; 99284; 99285; Q9967; U0003

== ENCOUNTER → 2020-02-16 10:29 | Outpatient (CLI) | payer MEDICARE, OTHER, SELFPAY ==
[2020-02-16 11:44] LABS: Alanine Aminotransferase 225 U/L (12-78); Albumin Level 4.3 g/dl (3.5-5.0); Albumin/Globulin Ratio 1.4 (1.1-1.8); Alkaline Phosphatase 235 U/L (38-126); Amylase 89 U/L (30-110); Anion Gap 12.1 mEq/L (5-15); Aspartate Amino Transferase 183 U/L (14-36); Bilirubin,Total 3.9 mg/dl (0.2-1.3); Blood Urea Nitrogen 17 mg/dl (7-17); Calcium 10.3 mg/dl (8.4-10.2); Carbon Dioxide 27 mmol/L (22.0-30.0); Chloride 105 mmol/L (98-107); Estimated Glomerular Filt Rate 61 ml/min (>60); GFR (African American) 74 ML/MIN (>60); Globulin 3.1 g/dL (1.3-3.2); Glucose 109 mg/dl (74-100); Potassium 4.1 mmoL/L (3.5-5.1); Sodium 140 mmol/L (136-145); Total Protein,Serum 7.4 g/dl (6.3-8.2)
[2020-02-16 14:01] LABS: Coronavirus 19 IgG Antibody Negative (Negative); Coronavirus 19 IgM Antibody Negative (Negative)
[2020-02-17 05:19] LABS: Immunoglobulin A, Qn 78 mg/dL (64-422); Immunoglobulin G, Qn 955 mg/dL (586-1602)
[2020-02-17 10:06] LABS: Immunoglobulin M, Qn 170 mg/dL (26-217)
[2020-02-17 17:32] LABS: Actin (Smooth Muscle) Antibody 3 Units (0-19); Angiotensin Converting Enzyme 108 U/L (14-82); Liver-Kidney Microsomal Ab <1.0 Units (0.0-20.0); Mitochondrial (M2) Antibody <20.0 Units (0.0-20.0)
[2020-02-19 15:27] LABS: Immunoglobulin E, Total 66 IU/mL (6-495)
[2020-03-17 20:17] LABS: Antinuclear Antibodies (ANA) NEGATIVE
== END ==
PROVIDERS: Visit Provider Internal Medicine Gastroenterology
DX: Z01.818 Encounter for other preprocedural examination (principal); K91.89 Other postprocedural complications and disorders of digestive system
CPT/HCPCS: 36415; 80053; 82150; 82164; 82784; 82785; 86038; 86255; 86256; 86328; 86376

== ENCOUNTER 2020-02-17 12:43 | Day surgery (SDC) | payer MEDICARE, OTHER, SELFPAY ==
[2020-02-15 09:40] VITALS: BMI 31.8
[2020-02-17 13:19] VITALS: BP 139/59; PULSE 80; RESP 18; TEMP 36.3; O2SAT 100
--- NOTE | 2020-02-17 14:38 | HMH.PROC ---
[facility] Procedure Note Procedure Note:: ERCP procedure Report: Endoscopic retrograde cholangiopancreatography with stent removal, extension of biliary sphincterotomy and balloon extraction Endoscopist: Kobe Figueroa II, MD Referring Physician: Sarwat Galarza MD Date of Procedure: February 17, 2020 Equipment: Olympus 180 side viewing endoscope duodenoscope Sedation: MAC sedation Indication: Mrs. Felix is a 75-year-old female with jaundice and presumptive biliary obstruction. She did have a CT scan that showed a dilated biliary system with a probable distal CBD stone. The patient did have a ERCP on January 30, 2020. The common bile duct was 7 to 8 mm and there was a small amount of sludge and small stones/debris but not significant biliary obstruction. I did place a prophylactic pancreatic stent to prevent post ERCP pancreatitis. The patient was still having some right upper quadrant discomfort. She has a long history of IBS with diarrhea. She previously took Viberzi. Her symptoms did begin after a bee sting and she did take Augmentin and antihistamines. She did develop pruritus and jaundice. After her ERCP, her jaundice did improve but did not resolve and lab work 2 weeks later showed bilirubin from 16 down to 5.3 but her alkaline phosphatase 329 and ALT 328 were still elevated. A routine abdominal film showed that there was a retained pancreatic stent. The patient has had moderate malaise and fatigue. Procedure: Prior to the procedure, a history and physical exam was performed, and patient's medications and allergies were reviewed. The risks, benefits and alternatives of the sedation and procedure were discussed with the patient. All questions were answered and informed consent was obtained. The patient was brought to the fluoroscopic radiology room. Patient identification and proposed procedure were verified by the physician and the nurse. The patient was placed in a swimmer's position between left lateral decubitus and prone position and the scope was passed under direct vision. Throughout the procedure, the patient's blood pressure, pulse, and oxygen saturations were monitored continuously. The ERCP was accomplished without difficulty. The patient tolerated the procedure well. Findings: The side-viewing duodenal scope was passed directly into the upper esophagus and advanced to the second portion of the duodenum. The pancreatic stent was identified and removed with a rat-tooth forceps. Next, the pancreatic duct was cannulated with a guidewire but a pancreatogram was not performed. Next, the common bile duct was cannulated with a guidewire and then the cannula. A cholangiogram showed an 8 mm common bile duct with normal filling of the intrahepatic biliary system. There appeared to be minor filling defect distally within the CBD so extension of biliary sphincterotomy and balloon extraction showed that this was just an air bubble and there was no further stones or sludge identified within the biliary system with a complete cholangiogram. Impression: 1. Normal cholangiogram status post biliary sphincterotomy (no retained stones/sludge or biliary stricture) 2. Pancreatic stent removal Plan: I did repeat labs again today. I do feel that some of her initial jaundice and elevated liver chemistries was intrahepatic cholestasis and may be a reactive injury (bee sting (toxic metabolic)) or even drug-induced hepatic cholestasis. I will check autoimmune serologies and additional work-up. Her viral hepatitis serologies were normal. If her liver chemistries remain elevated, I would consider percutaneous liver biopsy.
[2020-02-17 15:22] VITALS: BP 126/71; PULSE 81; RESP 18; TEMP 36.4; O2SAT 95
[2020-02-17 15:32] VITALS: BP 127/71; PULSE 77; RESP 18; TEMP 36.4; O2SAT 100
[2020-02-17 15:42] VITALS: BP 136/55; PULSE 71; RESP 18; TEMP 36.4; O2SAT 100
[2020-02-17 15:51] VITALS: BP 135/59; PULSE 74; RESP 18; TEMP 36.4; O2SAT 100
== END 2020-02-17 15:51 | disposition home or self-care (01) ==
LOC: OUTP 12:45
PROVIDERS: PCP Family Medicine; Visit Provider Internal Medicine Gastroenterology
PROC: (CPT 43262; principal; 2020-02-17 14:00)
DX: K83.1 Obstruction of bile duct (principal); K58.0 Irritable bowel syndrome with diarrhea; I10 Essential (primary) hypertension; E78.5 Hyperlipidemia, unspecified; K21.9 Gastro-esophageal reflux disease without esophagitis; Z80.3 Family history of malignant neoplasm of breast; Z87.39 Personal history of other diseases of the musculoskeletal system and connective tissue; Z88.1 Allergy status to other antibiotic agents
CPT/HCPCS: 43262; 43264; 43275; 74330; Q9967

== ENCOUNTER → 2022-11-12 09:52 | Outpatient (CLI) | payer MEDICARE, OTHER, SELFPAY ==
--- NOTE | 2022-11-12 09:59 | NM_ITS ---
FINAL REPORT CLINICAL HISTORY: RUQ pain u/s from [facility] and was neg for gb stones 10:32 am 8.11 [facility] tc choletec 11:50 am 1.7 mcg of cck no pain during cck COMPARISON: None FINDINGS: Sequential anterior projection images of the abdomen were obtained after the intravenous injection of 8.11 mCi technetium 99m Choletec. There is normal uptake of radiotracer by the liver. The bile ducts are visualized by 10 minutes. Gallbladder activity is seen by 20 minutes. Bowel activity is normal. After 1 hour, 1.7 ?g of CCK was injected intravenously for calculation of gallbladder ejection fraction. The gallbladder ejection fraction is 84%, which is within normal limits. IMPRESSION: No evidence of cystic duct or bile duct obstruction. Normal gallbladder ejection fraction of 84%. Reviewed, Interpreted and Dictated by Fany Hill MD Transcribed by Brandy Angela Authenticated and [facility]
== END ==
PROVIDERS: PCP Family Medicine; Visit Provider Surgery
DX: Z98.890 Other specified postprocedural states (principal); R10.11 Right upper quadrant pain
CPT/HCPCS: 78227; A9537; J2805

== ENCOUNTER → 2022-11-20 10:40 | Outpatient (CLI) | payer MEDICARE, OTHER, SELFPAY ==
[2022-11-20 10:58] LABS: Basophils % 0.9 % (0.1-2.0); Eosinophils # 0.2 K/mm3 (0.0-0.4); Hematocrit 42.3 % (37.0-47.0); Hemoglobin 13.8 g/dL (12.2-16.2); Lymphocytes # 2.3 K/mm3 (0.7-4.5); Lymphocytes % 48.1 % (10-50); Mean Corpuscular HGB Conc 32.6 g/dL (31.8-35.4); Mean Corpuscular Hemoglobin 32.1 pg (27.0-31.2); Mean Corpuscular Volume 98.5 fl (81-99); Mean Platelet Volume 8.2 fl (7.4-10.4); Monocytes # 0.5 K/mm3 (0.1-1.0); Monocytes % 9.9 % (1.7-9.3); Neutrophils # 1.8 K/mm3 (1.8-7.8); Neutrophils % 37.2 % (37.0-80.0); Platelet Count 213 K/mm3 (142-424); Red Cell Distribution Width 13.1 % (11.5-17.5); White Blood Count 4.8 K/mm3 (4.8-10.8)
[2022-11-20 11:19] LABS: Ammonia < 9 umol/L (9-30)
[2022-11-20 11:22] LABS: Alanine Aminotransferase 22 U/L (12-78); Albumin Level 4.4 g/dl (3.5-5.0); Albumin/Globulin Ratio 1.8 (1.1-1.8); Alkaline Phosphatase 97 U/L (38-126); Amylase 77 U/L (30-110); Aspartate Amino Transferase 28 U/L (14-36); Bilirubin,Total 0.8 mg/dl (0.2-1.3); Blood Urea Nitrogen 12 mg/dl (7-17); Calcium 9.3 mg/dl (8.4-10.2); Carbon Dioxide 30 mmol/L (22.0-30.0); Chloride 106 mmol/L (98-107); Estimated Glomerular Filt Rate 54 ml/min (>60); GFR (African American) 65 ML/MIN (>60); Globulin 2.5 g/dL (1.3-3.2); Glucose 106 mg/dl (74-100); Lipase 145 U/L (23-300); Sodium 141 mmol/L (136-145); Total Protein,Serum 6.9 g/dl (6.3-8.2)
== END ==
PROVIDERS: PCP Family Medicine; Visit Provider Surgery
DX: Z98.890 Other specified postprocedural states (principal); R17 Unspecified jaundice
CPT/HCPCS: 36415; 80053; 82140; 82150; 83690; 85025

== ENCOUNTER 2025-03-01 10:12 | Outpatient (CLI) | payer MEDICARE, OTHER, SELFPAY ==
--- OUTSIDE RECORDS SUMMARY | 2025-03-01 10:23 | XMS_ITS | Clinical Summary ---
Author Organization [facility] Address [address] [place] [address] Care Team Providers Care Quill Worker Name Role Phone Henrique Jones MD Primary Care Provider [phone] Allergies Active Allergy Reactions Criticality Noted Date Comments Ampicillin Unknown - High Severity Medium 06/03/2021 Amoxicillin-Pot Clavulanate Unknown - High Severity High 06/03/2021 Clavulanic Acid Unknown - Low Severity 02/15/20 Metoclopramide Unknown - Low Severity Medications omeprazole (priLOSEC) 20 MG capsule 04/26/2021 Active pravastatin (PRAVACHOL) 20 MG tablet 03/25/2021 Active triamcinolone (KENALOG) 0.1 % cream APPLY 1 GRAM ON AFFECTED AREA TWICE A DAY 09/11/2021 Active loperamide (IMODIUM) 2 MG capsule 11/29/2022 Active loperamide (IMODIUM) 2 MG capsule Take 2 capsules by mouth 2 (Two) Times a Day. Active metoprolol succinate XL (TOPROL-XL) 50 MG 24 hr tablet Take 1 tablet by mouth Daily. 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 Encounters Date Type Department Care Team Description 12/14/2024 Telephone [facility] HEMATOLOGY & ONCOLOGY [address] [facility] MEDICAL OFFICE [address] [facility] [address] [place] [address] Jessica Cho MD PAGE - RESULTS 12/09/2024 11:30 AM EDT Office Visit [facility] HEMATOLOGY & ONCOLOGY [address] [facility] [address] [place] [address] Karyna Milligan APRN MGUS (monoclonal gammopathy of unknown significance) (Primary Dx) 12/09/2024 11:10 AM EDT Lab [facility] [place] [address] [facility] [address] [place] [address] MGUS (monoclonal gammopathy of unknown significance) 12/09/2024 Travel from Last 3 Months Family History Medical History Relation Name Comments Stroke Father Stroke Mother Cancer Sister Relation Name Status Comments Father Mother Sister Social History Tobacco Use Types Packs/Day Years Used Date Smoking Tobacco: Never Smokeless Tobacco: Never Tobacco Cessation:Counseling Given: Not Answered Alcohol Use Standard Drinks/Week Comments Never 0 (1 standard drink = 0.6 oz pur e alcohol) PHQ-2 Answer Date Recorded Patient Health Questionnaire-2 Score 0 12/09/2024 Comments Unknown Sex and Gender Information Value Date Recorded Sex Assigned at Female 12/02/2024 11:49 AM EDT Legal Sex Female 8:51 AM EDT Gender Identity Not on file Sexual Orientation Straight 12/02/2024 11 :49 AM EDT Last Filed Vital Signs Vital Sign Reading Time Taken Comments Blood Pressure 148/117 12/09/2024 11:45 AM EDT TOÑA E Pulse 70 12/09/2024 11:45 AM EDT Temperature 35.8 C (96.5 F) 12/09/2024 11:45 AM EDT Respiratory Rate 16 12/09/2024 11:45 AM EDT Oxygen Saturation 97% 12/09/2024 11:45 AM EDT RA Inhaled Oxygen Concentration - - Weight 83.9 kg (185 lb) 12/09/2024 11:45 AM EDT Height 152.4 cm (5') 12/09/2024 11:45 AM EDT Body Mass Index 36.13 12/09/2024 11:45 AM EDT Plan of Treatment Upcoming Encounters Date Type Department Care Team (Late st Contact Info) Description 06/16/2025 10:45 AM EST Office Visit [facility] HEMATOLOGY & ONCOLOGY [address] [facility] [address] [place] [address] Jessica Cho MD [address] [place] [address] 12/15/2025 10:15 AM EDT Office Visit [facility] HEMATOLOGY & ONCOLOGY [address] [facility] [address] [place] [phone] Jessica Cho MD [address] [facility] [address] [place] [address] Health Maintenance Due Date Last Done Comments DXA SCAN 1945 TDAP/TD VACCINES (1 - Tdap) 1965 Pneumococcal Vaccine 50+ (1 of 1 - PCV) 02/12/1996 ZOSTER VACCINE (1 of 2) 02/12/1996 ANNUAL WELLNESS VISIT 01/26/2020 HEPATITIS C SCREENING 01/26/2020 COVID-19 Vaccine (3 - Modern a risk series) 08/31/2020 08/03/2020, 07/03/2020 RSV Vaccine - Adults (1 - 1- dose 75+ series) 2021 INFLUENZA VACCINE 11/25/2024 01/18/2020 COLONOSCOPY Discontinued 07/16/2010 COLORECTAL CANCER SCREENING Discontinued COLOGUARD Discontinued COLON CANCER SCREENING 5 YEA R SIGMOIDOSCOPY Discontinued CT COLONOGRAPHY Discontinued FECAL OCCULT BLOOD TEST Discontinued FIT Testing (1 year) Discontinued Procedures Procedure Name Priority Date/Time Associated Diagnosis Comments CBC AND DIFFERENTIAL Routine 12/09/2024 11:02 AM EDT MGUS (monoclonal gammopathy of unknown significance) CBC WITH AUTO DIFFERENTIAL Routine 12/09/2024 11:02 AM EDT MGUS (monoclonal gammopathy of unknown significance) IMMUNOFIXATION ELECTROPHORESIS Routine 12/09/2024 11:02 AM EDT MGUS (monoclonal gammopathy of unknown significance) COMPREHENSIVE METABOLIC PANEL Routine 12/09/2024 11:02 AM EDT MGUS (monoclonal gammopathy of unknown significance) from Last 3 Months Results * CBC Auto Differential (12/09/2024 11:02 AM EDT) WBC 6.42 3.40 - 10.80 10*3/mm3 12/09/2024 11:33 AM [facility] RBC 4.27 3.77 - 5.28 10*6/mm3 12/09/2024 11:33 AM [facility] Hemoglobin 13.9 12.0 - 15.9 g/dL 12/09/2024 11:33 AM [facility] Hematocrit 40.8 34.0 - 46.6 % 12/09/2024 11:33 AM [facility] MCV 95.6 79.0 - 97.0 fL 12/09/2024 11:33 AM [facility] MCH 32.6 26.6 - 33.0 pg 12/09/2024 11:33 AM [facility] MCHC 34.1 31.5 - 35.7 g/dL 12/09/2024 11:33 AM [facility] RDW 12.6 12.3 - 15.4 % 12/09/2024 11:33 AM [facility] RDW-SD 45.2 37.0 - 54.0 fl 12/09/2024 11:33 AM [facility] MPV 9.6 6.0 - 12.0 fL 12/09/2024 11:33 AM [facility] Platelets 268 140 - 450 10*3/mm3 12/09/2024 11:33 AM [facility] Neutrophil % 44.2 42.7 - 76.0 % 12/09/2024 11:33 AM [facility] Lymphocyte % 42.5 19.6 - 45.3 % 12/09/2024 11:33 AM [facility] Monocyte % 11.7 5.0 - 12.0 % 12/09/2024 11:33 AM [facility] Eosinophil % 0.9 0.3 - 6.2 % 12/09/2024 11:33 AM [facility] Basophil % 0.5 0.0 - 1.5 % 12/09/2024 11:33 AM EDT [facility] Immature Grans % 0.2 0.0 - 0.5 % 12/09/2024 11:33 AM EDT [facility] Neutrophils, Absolute 2.84 1.70 - 7.00 10*3/mm3 12/09/2024 11:33 AM EDT [facility] Lymphocytes, Absolute 2.73 0.70 - 3.10 10*3/mm3 12/09/2024 11:33 AM EDT [facility] Monocytes, Absolute 0.75 0.10 - 0.90 10*3/mm3 12/09/2024 11:33 AM EDT [facility] Eosinophils, Absolute 0.06 0.00 - 0.40 10*3/mm3 12/09/2024 11:33 AM EDT [facility] Basophils, Absolute 0.03 0.00 - 0.20 10*3/mm3 12/09/2024 11:33 AM EDT [facility] Immature Grans, Absolute 0.01 0.00 - 0.05 10*3/mm3 12/09/2024 11:33 AM EDT [facility] Blood Venipuncture / Unknown 12/09/2024 11:02 AM EDT 12/09/2024 11:07 AM EDT us Karyna Milligan PAPER CUP MACHINE OPERATOR LAB BLOOD ORDERABLES Final R esult [facility]
[address] [facility] [address] [place] [address], [place] * (ABNORMAL) NATACHA + PE (12/09/2024 11:02 AM EDT) IgG 1400 586 - 1602 mg/dL 12/13/2024 4:11 PM EDT [facility] IgA 67 64 - 422 mg/dL 12/13/2024 4:11 PM EDT [facility] IgM 75 26 - 217 mg/dL 12/13/2024 4:11 PM EDT [facility] Total Protein 7.3 6.0 - 8.5 g/dL 12/13/2024 4:11 PM EDT [facility] Albumin 3.8 2.9 - 4.4 g/dL 12/13/2024 4:11 PM EDT [facility] Mncpd-1-Hkqhocoy 0.2 0.0 - 0.4 g/dL 12/13/2024 4:11 PM EDT [facility] Dhzvq-1-Xwaqmaeo 0.9 0.4 - 1.0 g/dL 12/13/2024 4:11 PM EDT [facility] Beta Globulin 1.0 0.7 - 1.3 g/dL 12/13/2024 4:11 PM EDT [facility] Gamma Globulin 1.3 0.4 - 1.8 g/dL 12/13/2024 4:11 PM EDT [facility] M-Zackery 0.8(H) Not Observed g/dL 12/13/2024 4:11 PM EDT [facility] Globulin 3.5 2.2 - 3.9 g/dL 12/13/2024 4:11 PM EDT [facility] A/G Ratio 1.1 0.7 - 1.7 12/13/2024 4:11 PM EDT [facility] Immunofixation Reflex, Serum Comment(A) 12/13/2024 4:11 PM EDT [facility] Comment: Immunofixation shows IgG monoclonal protein with lambda light chain specificity. Please note Comment 12/13/2024 4:11 PM EDT [facility] Comment: Protein electrophoresis scan will follow via computer, mail, or hvac sales engineer delivery. Blood Venipuncture / Unknown 12/09/2024 11:02 AM EDT 12/09/2024 11:07 AM EDT Narrative [facility] - 12/13/2024 4:11 PM EDT Performed at: - [address] [id number] Negotiator Sales: Delvis Crawford PhD, Phone: [phone] us Karyna Milligan PAPER CUP MACHINE OPERATOR LAB BLOOD ORDERABLES Final R esult [facility] [address] [place] [address], * (ABNORMAL) Comprehensive Metabolic Panel (12/09/2024 11:02 AM EDT) Glucose 111(H) 65 - 99 mg/dL 12/09/2024 12:04 PM [facility] BUN 15.0 8.0 - 23.0 mg/dL 12/09/2024 12:04 PM [facility] Creatinine 1.20(H) 0.57 - 1.00 mg/dL 12/09/2024 12:04 PM [facility] Sodium 142 136 - 145 mmol/L 12/09/2024 12:04 PM [facility] Potassium 4.4 3.5 - 5.2 mmol/L 12/09/2024 12:04 PM [facility] Chloride 102 98 - 107 mmol/L 12/09/2024 12:04 PM [facility] CO2 25.2 22.0 - 29.0 mmol/L 12/09/2024 12:04 PM [facility] Calcium 10.0 8.6 - 10.5 mg/dL 12/09/2024 12:04 PM [facility] Total Protein 7.7 6.0 - 8.5 g/dL 12/09/2024 12:04 PM [facility] Albumin 4.4 3.5 - 5.2 g/dL 12/09/2024 12:04 PM [facility] ALT (SGPT) 16 1 - 33 U/L 12/09/2024 12:04 PM [facility] AST (SGOT) 21 1 - 32 U/L 12/09/2024 12:04 PM [facility] Alkaline Phosphatase 93 39 - 117 U/L 12/09/2024 12:04 PM [facility] Total Bilirubin 0.8 0.0 - 1.2 mg/dL 12/09/2024 12:04 PM [facility] Globulin 3.3 gm/dL 12/09/2024 12:04 PM [facility] A/G Ratio 1.3 g/dL 12/09/2024 12:04 PM EDT [facility] BUN/Creatinine Ratio 12.5 7.0 - 25.0 12/09/2024 12:04 PM EDT [facility] Anion Gap 14.8 5.0 - 15.0 mmol/L 12/09/2024 12:04 PM EDT [facility] eGFR 46.4(L) >60.0 mL/min/1.7 3 12/09/2024 12:04 PM EDT [facility] Blood Venipuncture / Unknown 12/09/2024 11:02 AM EDT 12/09/2024 11:07 AM EDT Narrative [facility] - 12/09/2024 12:04 PM EDT GFR Categories in Chronic Kidney Disease (CKD) GFR Category GFR (mL/min/1.73) Interpretation G1 90 or greater Normal or high (1) G2 60-89 Mild decrease (1) G3a 45-59 Mild to moderate decrease G3b 30-44 Moderate to severe decrease G4 15-29 Severe decrease G5 14 or less Kidney failure (1)In the absence of evidence of kidney disease, neither GFR category G1 or G2 fulfill the criteria for CKD. eGFR calculation 2020 CKD-EPI creatinine equation, which does not include race as a factor us Karyna Milligan PAPER CUP MACHINE OPERATOR LAB BLOOD ORDERABLES Final R esult [facility]
[address] [facility] [address] [place] [address], from Last 3 Months Insurance MEDICARE A & B [facility] SUP Advance Directives Documents on File Type Date Recorded Patient Shuttle Threader Expl anation LIVING WILL - SCAN 12/04/2023 10:05 AM Care Teams Quill Worker Relationship Specialty Start Date End Date Henrique Jones MD [address] [place] [address] [place] [address] PCP - General Family Medicine 06/03/21
[2025-03-01 10:42] LABS: Hematocrit 35.6 % (37.0-47.0); Hemoglobin 12.2 g/dL (12.2-16.2); Immature Granulocytes % 0.2 %; Mean Corpuscular HGB Conc 34.3 g/dL (31.8-35.4); Mean Corpuscular Hemoglobin 33.3 pg (27.0-31.2); Mean Corpuscular Volume 97.3 fl (81-99); Nucleated Red Blood Cells % 0 %; Platelet Count 187 K/mm3 (142-424); Red Blood Count 3.66 M/mm3 (4.20-5.40); Red Cell Distribution Width-SD 45.7 fL; White Blood Count 5.3 K/mm3 (4.8-10.8)
[2025-03-01 11:19] LABS: Alanine Aminotransferase 19 U/L (12-78); Albumin Level 4.1 g/dl (3.5-5.0); Albumin/Globulin Ratio 1.3 (1.1-1.8); Alkaline Phosphatase 98 U/L (38-126); Anion Gap 9.0 mEq/L (5-15); Aspartate Amino Transferase 26 U/L (14-36); Bilirubin,Total 0.8 mg/dl (0.2-1.3); Blood Urea Nitrogen 13 mg/dl (7-17); Calcium 9.7 mg/dl (8.4-10.2); Carbon Dioxide 28 mmol/L (22.0-30.0); Chloride 104 mmol/L (98-107); Creatinine,Serum 1.00 mg/dl (0.52-1.04); Estimated Glomerular Filt Rate 53 ml/min (>60); GFR (African American) 65 ML/MIN (>60); Globulin 3.1 g/dL (1.3-3.2); Glucose 105 mg/dl (74-100); Iron 135 ug/dL (37-170); Potassium 4.0 mmoL/L (3.5-5.1); Sodium 137 mmol/L (136-145); Total Protein,Serum 7.2 g/dl (6.3-8.2)
[2025-03-01 11:29] LABS: Total Iron Binding Capacity 265 ug/dL (265-497)
[2025-03-01 11:57] LABS: Ferritin 153 ng/ml (11.1-264)
[2025-03-02 14:45] LABS: Deamidated Gliadin Abs, IgA 2 units (0-19); Deamidated Gliadin Abs, IgG 6 units (0-19)
== END 2025-03-01 23:59 | disposition home or self-care (01) ==
LOC: LAB 10:13
PROVIDERS: PCP Family Medicine; Visit Provider Internal Medicine Gastroenterology
DX: K74.69 Other cirrhosis of liver (principal); B19.20 Unspecified viral hepatitis C without hepatic coma; R19.7 Diarrhea, unspecified; R10.11 Right upper quadrant pain; Z98.890 Other specified postprocedural states
CPT/HCPCS: 36415; 80053; 82728; 83540; 83550; 85025; 86231; 86258; 86364

== ENCOUNTER 2025-03-02 10:40 | Outpatient (CLI) | payer MEDICARE, OTHER, SELFPAY ==
--- OUTSIDE RECORDS SUMMARY | 2025-03-02 10:49 | XMS_ITS | Clinical Summary ---
Author Organization [facility] Address [address] [place] [address] Care Team Providers Care Improvement Manager Name Role Phone Henrique Jones MD Primary Care Provider [phone] Allergies Active Allergy Reactions Criticality Noted Date [...] Type Department Care Team Description 12/14/2024 Telephone [facility] HEMATOLOGY & ONCOLOGY [address] [facility] [address] [place] [address] Jessica Cho MD PAGE - RESULTS 12/09/2024 11:30 AM EDT Office Visit [facility] HEMATOLOGY & ONCOLOGY [address] [facility] [address] [place] [address] Karyna Milligan APRN MGUS (monoclonal gammopathy of unknown significance) (Primary Dx) 12/09/2024 11:10 AM EDT Lab [facility] [place] [address] [facility] [address] [place] [address] MGUS (monoclonal gammopathy of unknown [...] Description 06/16/2025 10:45 AM EST Office Visit [facility] HEMATOLOGY & ONCOLOGY [address] [facility] [address] [place] [address] Jessica Cho MD [address] [place] [address] 12/15/2025 10:15 AM EDT Office Visit [facility] HEMATOLOGY & ONCOLOGY [address] [facility] [address] [place] [phone] Jessica Cho MD [address] [facility] [address] [place] [address] Health Maintenance Due Date Last Done Comments [...] 3.40 - 10.80 10*3/mm3 12/09/2024 11:33 AM [facility] RBC 4.27 3.77 - 5.28 10*6/mm3 12/09/2024 11:33 AM [facility] Hemoglobin 13.9 12.0 - 15.9 g/dL 12/09/2024 11:33 AM [facility] Hematocrit 40.8 34.0 - 46.6 % 12/09/2024 11:33 AM [facility] MCV 95.6 79.0 - 97.0 fL 12/09/2024 11:33 AM [facility] MCH 32.6 26.6 - 33.0 pg 12/09/2024 11:33 AM [facility] MCHC 34.1 31.5 - 35.7 g/dL 12/09/2024 11:33 AM [facility] RDW 12.6 12.3 - 15.4 % 12/09/2024 11:33 AM [facility] RDW-SD 45.2 37.0 - 54.0 fl 12/09/2024 11:33 AM [facility] MPV 9.6 6.0 - 12.0 fL 12/09/2024 11:33 AM [facility] Platelets 268 140 - 450 10*3/mm3 12/09/2024 11:33 AM [facility] Neutrophil % 44.2 42.7 - 76.0 % 12/09/2024 11:33 AM [facility] Lymphocyte % 42.5 19.6 - 45.3 % 12/09/2024 11:33 AM [facility] Monocyte % 11.7 5.0 - 12.0 % 12/09/2024 11:33 AM [facility] Eosinophil % 0.9 0.3 - 6.2 % 12/09/2024 11:33 AM [facility] Basophil % 0.5 0.0 - 1.5 % 12/09/2024 11:33 AM EDT [facility] Immature Grans % 0.2 0.0 - 0.5 % 12/09/2024 11:33 AM EDT [facility] Neutrophils, Absolute 2.84 1.70 - 7.00 10*3/mm3 12/09/2024 11:33 AM EDT [facility] Lymphocytes, Absolute 2.73 0.70 - 3.10 10*3/mm3 12/09/2024 11:33 AM EDT [facility] Monocytes, Absolute 0.75 0.10 - 0.90 10*3/mm3 12/09/2024 11:33 AM EDT [facility] Eosinophils, Absolute 0.06 0.00 - 0.40 10*3/mm3 12/09/2024 11:33 AM EDT [facility] Basophils, Absolute 0.03 0.00 - 0.20 10*3/mm3 12/09/2024 11:33 AM EDT [facility] Immature Grans, Absolute 0.01 0.00 - 0.05 10*3/mm3 12/09/2024 11:33 AM EDT [facility] Blood Venipuncture / Unknown 12/09/2024 11:02 AM EDT 12/09/2024 11:07 AM EDT us Karyna Milligan BUDGET DIRECTOR LAB BLOOD ORDERABLES Final R esult [facility]
[address] [facility] [address] [place] [address], [place] * (ABNORMAL) NATACHA + PE (12/09/2024 [...] g/dL 12/13/2024 4:11 PM EDT [facility] Pxmfd-6-Yaqxyzxf 0.2 0.0 - 0.4 g/dL 12/13/2024 4:11 PM EDT [facility] Jfhbd-2-Ngxwyzau 0.9 0.4 - 1.0 g/dL 12/13/2024 4:11 [...] scan will follow via computer, mail, or store keeper delivery. Blood Venipuncture / Unknown 12/09/2024 11:02 AM EDT 12/09/2024 11:07 AM EDT Narrative [facility] - 12/13/2024 4:11 PM EDT Performed at: - [address] [id number] Motorcycle Repair Shop Supervisor: Delvis Crawford PhD, Phone: [phone] us Karyna Milligan BUDGET DIRECTOR LAB BLOOD ORDERABLES Final R esult [facility] [address] [place] [address], * (ABNORMAL) Comprehensive Metabolic Panel (12/09/2024 11:02 AM EDT) Glucose 111(H) 65 - 99 mg/dL 12/09/2024 12:04 PM [facility] BUN 15.0 8.0 - 23.0 mg/dL 12/09/2024 12:04 PM [facility] Creatinine 1.20(H) 0.57 - 1.00 mg/dL 12/09/2024 12:04 PM [facility] Sodium 142 136 - 145 mmol/L 12/09/2024 12:04 PM [facility] Potassium 4.4 3.5 - 5.2 mmol/L 12/09/2024 12:04 PM [facility] Chloride 102 98 - 107 mmol/L 12/09/2024 12:04 PM [facility] CO2 25.2 22.0 - 29.0 mmol/L 12/09/2024 12:04 PM [facility] Calcium 10.0 8.6 - 10.5 mg/dL 12/09/2024 12:04 PM [facility] Total Protein 7.7 6.0 - 8.5 g/dL 12/09/2024 12:04 PM [facility] Albumin 4.4 3.5 - 5.2 g/dL 12/09/2024 12:04 PM [facility] ALT (SGPT) 16 1 - 33 U/L 12/09/2024 12:04 PM [facility] AST (SGOT) 21 1 - 32 U/L 12/09/2024 12:04 PM [facility] Alkaline Phosphatase 93 39 - 117 U/L 12/09/2024 12:04 PM [facility] Total Bilirubin 0.8 0.0 - 1.2 mg/dL 12/09/2024 12:04 PM [facility] Globulin 3.3 gm/dL 12/09/2024 12:04 PM [facility] A/G Ratio 1.3 g/dL 12/09/2024 12:04 PM EDT [facility] BUN/Creatinine Ratio 12.5 7.0 - 25.0 12/09/2024 12:04 PM EDT [facility] Anion Gap 14.8 5.0 - 15.0 mmol/L 12/09/2024 12:04 PM EDT [facility] eGFR 46.4(L) >60.0 mL/min/1.7 3 12/09/2024 12:04 PM EDT [facility] Blood Venipuncture / Unknown 12/09/2024 11:02 AM EDT 12/09/2024 11:07 AM EDT Narrative [facility] - 12/09/2024 12:04 PM EDT [...] race as a factor us Karyna Milligan BUDGET DIRECTOR LAB BLOOD ORDERABLES Final R esult [facility]
[address] [facility] [address] [place] [address], from Last 3 Months Insurance MEDICARE A & B [facility] SUP Advance Directives Documents on File Type Date Recorded Patient Precipitator Supervisor Expl anation LIVING WILL - SCAN 12/04/2023 10:05 AM Care Teams Improvement Manager Relationship Specialty Start Date End Date Henrique Jones MD [address] [place] [address] [place] [address] PCP - General Family Medicine 06/03/21
[2025-03-02 11:10] LABS: Occult Blood,Stool Negative (Negative)
== END 2025-03-02 23:59 | disposition home or self-care (01) ==
LOC: LAB 10:41
PROVIDERS: PCP Family Medicine; Visit Provider Internal Medicine Gastroenterology
DX: R19.7 Diarrhea, unspecified (principal); R10.11 Right upper quadrant pain; Z98.890 Other specified postprocedural states
CPT/HCPCS: 82272; G0328